=== PATIENT | male | born 1950 | race Caucasian/White ===

== ENCOUNTER → 2018-01-03 | Outpatient (CLI) | payer OTHER ==
[~2018-01-03] MED LIST: ALBU0.63 NEB; CHOL10002 PO; HYDR-3307 PO; IPRA12.9 INH; NAPR220T77 PO; RILU50TA3 PO; VITA1TAB3 PO
== END | disposition home or self-care (01) ==
LOC: RAD 14:31
PROVIDERS: ATTEND Psychiatry & Neurology Neurology
DX: G12.21 Amyotrophic lateral sclerosis (principal)
CPT/HCPCS: 36569; 76937; 77001; C1751

== ENCOUNTER 2018-03-14 10:23 | Day surgery (SDC) | payer OTHER ==
[~2018-03-14] VITALS: Ht 182.9 cm; Wt 105.7 kg
[2018-03-14 10:59] VITALS: BP 126/84
[2018-03-14] MEDS: SODIUM CHLORIDE 0.9% 1,000 ML IV SCH (11:30)
[2018-03-14] MEDS ORDERED: CEFAZOLIN 1,000 MG IV ONE (11:30)
[2018-03-14] MEDS: CEFAZOLIN PMX 1GM/50ML 50 ML IVPB ONE (11:34)
[2018-03-14] MEDS ORDERED: NALOXONE 1 MG/ML, 2ML ONE (11:57)
[2018-03-14] MEDS ORDERED: FLUMAZENIL 0.1 MG/1 ML, 5ML ONE (11:57)
[2018-03-14] MEDS ORDERED: FENTANYL PF 100 MCG/2ML ONE (11:57)
[2018-03-14] MEDS ORDERED: MIDAZOLAM 1 MG/ML, 5ML ONE (11:57)
== END 2018-03-14 14:25 ==
LOC: OUT 10:23
PROVIDERS: ATTEND Psychiatry & Neurology Neurology
DX: Z45.2 Encounter for adjustment and management of vascular access device (principal); G12.21 Amyotrophic lateral sclerosis
CPT/HCPCS: 36561; 76937; 77001; 99156; 99157; C1788; J0690; J1642; J2250; J3010; J7030; J2310